=== PATIENT | female | born 1965 | race Two or more races ===

== ENCOUNTER 2021-01-16 11:55 | Outpatient (CLI) | payer OTHER | END 2021-01-16 12:39 | disposition home or self-care (01) | LOC: OFIC 805 11:55 | PROVIDERS: ATTEND Otolaryngology Otology & Neurotology | DX: R22.1 Localized swelling, mass and lump, neck (principal); H61.23 Impacted cerumen, bilateral ==

== ENCOUNTER 2021-01-26 12:59 | Outpatient (CLI) | payer OTHER | END 2021-01-26 13:10 | disposition home or self-care (01) | LOC: SONOGRAMA 12:59 → MAMO-SONO 13:15 | PROVIDERS: ATTEND Otolaryngology Otology & Neurotology | DX: E04.1 Nontoxic single thyroid nodule (principal); R59.0 Localized enlarged lymph nodes ==

== ENCOUNTER 2023-04-22 12:22 | Emergency (ER) | payer OTHER ==
[~2023-04-22] VITALS: Ht 165.1 cm; Wt 68.0 kg
== END 2023-04-22 16:02 | disposition home or self-care (01) ==
LOC: ER 12:22
DX: S80.212A Abrasion, left knee, initial encounter (principal); W10.8XXA Fall (on) (from) other stairs and steps, initial encounter; Y93.01 Activity, walking, marching and hiking; Y92.89 Other specified places as the place of occurrence of the external cause; Z88.0 Allergy status to penicillin